=== PATIENT | male | born 1970 | race Caucasian/White ===

== ENCOUNTER 2016-12-22 12:41 | Emergency (ER) | payer OTHER ==
[2016-12-22 12:53] VITALS: BMI 36.1
[2016-12-22] MEDS ORDERED: morphine CARPU-JECT 2 MG/1 ML DISP.SYRIN ONE (13:58)
--- NOTE | 2016-12-22 13:58 | PDOC ---
History of Present Illness - General Chief Complaint: Pain Stated Complaint: PAIN Time Seen by Provider: 12/22/16 13:02 History Source: Patient - History of Present Illness Occurred: reports: yesterday Severity: Yes: severe Lower Extremity Pain Location: left: leg Past History - Past Medical History Allergies/Adverse Reactions: Allergies Allergy/AdvReac Type Severity Reaction Status Date / Time No Known Allergies Allergy Verified 12/22/16 12:42 Home Medications: Ambulatory Orders Acetaminophen [Tylenol] 650 mg PO QID PRN 12/22/16 Aspirin [ASA -] 81 mg PO DAILY 12/22/16 Atenolol [Tenormin -] 50 mg PO DAILY 12/22/16 Cefdinir [Omnicef -] 300 mg PO BID 12/22/16 Cetirizine HCl [Wal-Zyr] 10 mg PO DAILY 12/22/16 Clopidogrel Bisulfate [Plavix -] 75 mg PO DAILY 12/22/16 Finasteride [Proscar] 5 mg PO DAILY 12/22/16 Fluticasone Propionate [Flovent Diskus] 50 mcg IH DAILY 12/22/16 Gabapentin [Neurontin] 600 mg PO TID 12/22/16 Gluc HCl/Csa/Collagen/Hyalur A [Glucosamine Chondroitin Cap] 1 cap PO DAILY Sertraline HCl [Zoloft] 100 mg PO DAILY 12/22/16 Tamsulosin HCl 0.4 mg PO DAILY 12/22/16 Tramadol HCl 50 mg PO Q6H #20 tablet MDD 200 mg 12/22/16 Trazodone HCl 50 mg PO DAILY 12/22/16 Vitamin B Complex [B Complete] 1 tab PO DAILY 12/22/16 Zolpidem Tartrate 10 mg PO PRN 12/22/16 HTN: Yes Other medical history: BPH, DVT - Psycho/Social/Smoking Cessation Hx Anxiety: No Suicidal Ideation: No Smoking History: Never smoked Have you smoked in the past 12 months: No Number of Cigarettes Smoked Daily: 3 Information on smoking cessation initiated: No 'Breaking Loose' booklet given: 07/30/14 Hx Alcohol Use: No Drug/Substance Use Hx: No Substance Use Type: None Hx Substance Use Treatment: No Review of Systems - Review of Systems Constitutional: No: Chills, Fever Respiratory: No: Shortness of Breath Cardiac (ROS): No: Chest Pain, Palpitations Neurological: Yes: Numbness. No: Tingling, Weakness *Physical Exam - Vital Signs Last Vital Signs Temp Pulse Resp BP Pulse Ox 98.0 F 72 18 139/80 100 12/22/16 12:43 12/22/16 12:43 12/22/16 12:43 12/22/16 12:43 12/22/16 12:43 - Physical Exam General Appearance: Yes: Appropriately Dressed, Mild Distress HEENT: positive: Normal Voice Neck: positive: Supple Respiratory/Chest: positive: Lungs Clear, Normal Breath Sounds. negative: Respiratory Distress Cardiovascular: positive: Regular Rate, S1, S2 Extremity: positive: Other (well healing sx scars, b/l, severe pain w/ palpation to L calf, no swelling, pedal pulses intact b/l) Integumentary: positive: Dry, Warm Neurologic: positive: Fully Oriented, Alert, Normal Mood/Affect ED Treatment Course - LABORATORY CBC & Chemistry Diagram: 12/22/16 13:17 12/22/16 13:17 - RADIOLOGY Radiology Studies Ordered: Category Date Time Status DUPLEX VASCUL US-1 LEG [US] Stat Ultrasound 12/22/16 13:24 Ordered Medical Decision Making - Medical Decision Making 12/22/16 13:53 46-year-old male history of hypertension, chronic sinusitis, status post fem- popliteal bypass on plavix, status post thrombectomy with stent placement to left lower leg 10/[address] Barrera, here with severe L calf pain that started yesterday, worse with walking, better with rest and also report numbness to leg. Denies any fever or chills. No trauma. See exam L calf pain Vasculopath w/ fem-pop bypass to RLE and s/p thrombectomy w/ stent placement to LLE 10/15 +calf ttp and well healing surgical scars to b/l LE, PT/DP pulses intact b/l, no cold extremity -pain control -labs -dopplers r/o clot or occlusion -vasc c/s for possible CTA w/ runoffs -dispo pending 12/22/16 13:58 12/22/16 16:05 Vasc and arterial doppler ordered as per d/w Dr Barrera and shows no DVT and patent bypass site w/ no e/o infection. Pain presently controlled w/ meds. Will discuss dipo w/ vascular 12/22/16 17:23 Dr. Barrera aware of ultrasound results and agrees that patient can be discharged with pain control and to follow up with MJudah in office *DC/Admit/Observation/Transfer Diagnosis at time of Disposition: Pain of left calf - Discharge Dispostion Disposition: HOME Condition at time of disposition: Improved - Prescriptions Prescriptions: Tramadol HCl 50 mg PO Q6H #20 tablet MDD 200 mg - Patient Instructions Additional Instructions: Your US shows that you bypass is clear with no blockage, infection or blood clot Take pain meds as directed and call Dr Barrera to make an appointment
[2016-12-22 14:00] LABS: BASOPHIL 0.9 % (0-2.0); EOSINOPHIL 5.4 % (0-4.5); MCH 31.2 pg (25.7-33.7); MCHC 33.3 g/dl (32.0-35.9); MEAN CELL VOLUME 93.6 fl (80-96); NEUTROPHILS 59.7 % (42.8-82.8); PLATELET COUNT 312 K/MM3 (134-434); RDW 13.7 % (11.9-15.9)
[2016-12-22] MEDS ORDERED: morphine CARPU-JECT 4 MG/1 ML DISP.SYRIN IVPUSH ONE (14:14)
[2016-12-22 14:22] LABS: ALK PHOS 50 U/L (45-117); ANION GAP 7 (8-16); BILIRUBIN,TOTAL 0.3 mg/dL (0.2-1.0); CALCIUM 9.6 mg/dL (8.5-10.1); CO2 32 mmol/L (21-32); CREATININE 0.9 mg/dL (0.7-1.3); GLUCOSE,RANDOM 95 mg/dL (74-106); SGOT/AST 19 U/L (15-37); SGPT/ALT 38 U/L (12-78); TOT PROT 7.3 g/dl (6.4-8.2)
[2016-12-22 14:57] LABS: INR 0.97 (0.82-1.09); PROTHROMBIN TIME (PATIENT) 10.7 SEC (9.98-11.88)
[2016-12-22 14:58] LABS: URINE APPEARANCE CLEAR; URINE BILIRUBIN NEGATIVE (NEGATIVE); URINE BLOOD NEGATIVE (NEGATIVE); URINE COLOR LTYELLOW; URINE GLUCOSE (UA) NEGATIVE (NEGATIVE); URINE KETONE NEGATIVE (NEGATIVE); URINE LEUK ESTERASE NEGATIVE (NEGATIVE); URINE NITRITE NEGATIVE (NEGATIVE); URINE PROTEIN NEGATIVE (NEGATIVE); URINE UROBILINOGEN NEGATIVE E.U./dl (0.2-1.0)
[2016-12-22 16:10] VITALS: PULSE 100
[2016-12-22 17:41] VITALS: BP 134/87; TEMP 98.3
== END 2016-12-22 17:38 | disposition home or self-care (01) ==
LOC: JER 12:41
PROC: 3E033NZ Introduction of Analgesics, Hypnotics, Sedatives into Peripheral Vein, Percutaneous Approach (ICD-10-PCS; principal; 2016-12-22)
DX: M79.662 Pain in left lower leg (principal); Z86.718 Personal history of other venous thrombosis and embolism; Z79.01 Long term (current) use of anticoagulants; N40.0 Benign prostatic hyperplasia without lower urinary tract symptoms; Z86.79 Personal history of other diseases of the circulatory system; Z95.820 Peripheral vascular angioplasty status with implants and grafts
CPT/HCPCS: 36415; 80053; 81003; 85025; 85610; 86850; 86900; 86901; 93926-TC; 93971-TC; 96374; 99283-25

== ENCOUNTER 2017-05-26 23:51 | Emergency (ER) | payer OTHER ==
[2017-05-26 23:56] VITALS: BP 121/68; PULSE 116; TEMP 98.1; BMI 44.4
--- NOTE | 2017-05-27 01:18 | PDOC ---
History of Present Illness - General History Source: Patient Exam Limitations: No Limitations - History of Present Illness Initial Comments: 05/27/17 01:24 The patient is a 47 year old male with past medical history of hypertension, BPH , and DVT s/p bilateral femoral popliteal bypass 3 years ago who presents to the ED with complaints of bilateral lower extremity pain for the past few days. The patient locates the pain to his surgical scar sites. He describes it as a burning, stabbing pain with associated tingling that has since gotten worse over the past few days. His symptoms are present even at rest and are unaffected by taking tramadol. The patient denies any fevers, chills, nausea, vomiting, diarrhea, cough, SOB, or urinary symptoms. Vascular Surgeon: Jamie Barrera <Leanna Farley - Last Filed: 05/27/17 01:24> - General History Source: Patient Exam Limitations: No Limitations <Norman Fontenot - Last Filed: 05/27/17 02:16> - General Chief Complaint: Pain, Acute Stated Complaint: LEG PAIN Time Seen by Provider: 05/27/17 00:13 Past History <Leanna Farley - Last Filed: 05/27/17 01:24> - Past Medical History HTN: Yes - Suicide/Smoking/Psychosocial Hx Smoking History: Unknown if ever smoked Have you smoked in the past 12 months: No Number of Cigarettes Smoked Daily: 3 Information on smoking cessation initiated: No 'Breaking Loose' booklet given: 07/30/14 Hx Alcohol Use: No Drug/Substance Use Hx: No Substance Use Type: None Hx Substance Use Treatment: No <Norman Fontenot - Last Filed: 05/27/17 02:16> - Past Medical History Allergies/Adverse Reactions: Allergies Allergy/AdvReac Type Severity Reaction Status Date / Time No Known Allergies Allergy Verified 05/26/17 23:56 Home Medications: Ambulatory Orders Acetaminophen [Tylenol] 650 mg PO QID PRN 12/22/16 Aspirin [ASA -] 81 mg PO DAILY 12/22/16 Atenolol [Tenormin -] 50 mg PO DAILY 12/22/16 Cefdinir [Omnicef -] 300 mg PO BID 12/22/16 Cetirizine HCl [Wal-Zyr] 10 mg PO DAILY 12/22/16 Clopidogrel Bisulfate [Plavix -] 75 mg PO DAILY 12/22/16 Finasteride [Proscar] 5 mg PO DAILY 12/22/16 Fluticasone Propionate [Flovent Diskus] 50 mcg IH DAILY 12/22/16 Gabapentin [Neurontin] 600 mg PO TID 12/22/16 Gluc HCl/Csa/Collagen/Hyalur A [Glucosamine Chondroitin Cap] 1 cap PO DAILY Sertraline HCl [Zoloft] 100 mg PO DAILY 12/22/16 Tamsulosin HCl 0.4 mg PO DAILY 12/22/16 Tramadol HCl 50 mg PO Q6H #20 tablet MDD 200 mg 12/22/16 Trazodone HCl 50 mg PO DAILY 12/22/16 Vitamin B Complex [B Complete] 1 tab PO DAILY 12/22/16 Zolpidem Tartrate 10 mg PO PRN 12/22/16 Review of Systems - Review of Systems Able to Perform ROS?: Yes Comments:: 05/27/17 01:25 GENERAL/CONSTITUTIONAL: No fever or chills. No weakness. HEAD, EYES, EARS, NOSE AND THROAT: No change in vision. No ear pain or discharge. No sore throat. CARDIOVASCULAR: No chest pain or shortness of breath. RESPIRATORY: No cough, wheezing, or hemoptysis. GASTROINTESTINAL: No nausea, vomiting, diarrhea or constipation. GENITOURINARY: No dysuria, frequency, or change in urination. MUSCULOSKELETAL: Present: bilateral lower extremity pain No joint or muscle swelling or pain. No neck or back pain. SKIN: No rash NEUROLOGIC: No headache, vertigo, loss of consciousness, or change in strength/ sensation. ENDOCRINE: No increased thirst. No abnormal weight change. HEMATOLOGIC/LYMPHATIC: No anemia, easy bleeding, or history of blood clots. ALLERGIC/IMMUNOLOGIC: No hives or skin allergy. All Other Systems: Reviewed and Negative <Leanna Farley - Last Filed: 05/27/17 01:24> *Physical Exam - Vital Signs Last Vital Signs Temp Pulse Resp BP Pulse Ox 98.1 F 116 H 20 121/68 95 05/26/17 23:54 05/26/17 23:54 05/26/17 23:54 05/26/17 23:54 05/26/17 23:54 - Physical Exam Comments: 05/27/17 01:25 GENERAL: Awake, alert, and fully oriented, in no acute distress HEAD: No signs of trauma EYES: PERRLA, EOMI, sclera anicteric, conjunctiva clear ENT: Auricles normal inspection, hearing grossly normal, nares patent, oropharynx clear without exudates. Moist mucosa NECK: Normal ROM, supple, no lymphadenopathy, JVD, or masses LUNGS: Breath sounds equal, clear to auscultation bilaterally. No wheezes, and no crackles HEART: Regular rate and rhythm, normal S1 and S2, no murmurs, rubs or gallops ABDOMEN: Soft, nontender, normoactive bowel sounds. No guarding, no rebound. No masses EXTREMITIES: Large surgical scars extending from left medial thigh to left medial calf, tender to palpation, negative isaura sign, 2+ DP pulse bilaterally. Normal range of motion, no edema. No clubbing or cyanosis. No cords, erythema. NEUROLOGICAL: Cranial nerves II through XII grossly intact. Normal speech, normal gait SKIN: Warm, Dry, normal turgor, no rashes or lesions noted. <Leanna Farley - Last Filed: 05/27/17 01:24> - Vital Signs Last Vital Signs Temp Pulse Resp BP Pulse Ox 98.1 F 116 H 20 121/68 95 05/26/17 23:54 05/26/17 23:54 05/26/17 23:54 05/26/17 23:54 05/26/17 23:54 <Norman Fontenot - Last Filed: 05/27/17 02:16> ED Treatment Course - RADIOLOGY Radiology Studies Ordered: Category Date Time Status DUPLEX ART. LOWER COMPL US [US] Stat Ultrasound 05/27/17 00:36 Ordered DUPLEX VASCUL US-2LEGS [US] Stat Ultrasound 05/27/17 00:36 Ordered <Norman Fontenot - Last Filed: 05/27/17 02:16> Medical Decision Making - Medical Decision Making 05/27/17 01:17 A portion of this note was documented by scribe services under my direction. I have reviewed the details of the note, within reason, and agree with the documentation with the following case summary and management plan written by me. Patient treated in the ED. Nursing notes are reviewed and incorporated into the medical decision-making. Vital signs reviewed. Peripheral IV access obtained by the nurse, laboratory studies are drawn and sent, reviewed and interpreted by myself. Vital Signs Temp Pulse Resp BP Pulse Ox 98.1 F 116 H 20 121/68 95 05/26/17 23:54 05/26/17 23:54 05/26/17 23:54 05/26/17 23:54 05/26/17 23:54 47 year old male with past medical history of hypertension, peripheral arterial disease status post femoral-popliteal bypass bilaterally on Plavix, status post lumpectomy was stent placement in the left lower leg presents to the emergency department for bilateral leg pains. The patient has pain along the scars. States that this has been a chronic pain that has worsened over the last 2 weeks. Denies any new numbness or weakness. Has intermittently taken his tramadol and Tylenol with little effect. Denies any trauma or injuries. The patient has strong palpable DP pulses bilaterally. The pain appears to be mostly at the scar sites. I suspect that the pain is mostly scar related. We'll however, obtain duplexes of the veins and arteries of the lower extremities and trial Percocet. If feel traumas negative the patient reports feeling better, I feel the patient may be discharged home with vascular follow-up as an outpatient. 05/27/17 02:15 Pt signed out to Dr. Galeano. <Norman Fontenot - Last Filed: 05/27/17 02:16> *DC/Admit/Observation/Transfer - Attestations Scribe Attestion: 05/27/17 01:29 Documentation prepared by Leanna Farley, acting as medical coding manager for Norman Fontenot MD. <Leanna Farley - Last Filed: 05/27/17 01:24>
--- NOTE | 2017-05-27 04:03 | PDOC ---
*Physical Exam - Vital Signs Last Vital Signs Temp Pulse Resp BP Pulse Ox 98.1 F 116 H 20 121/68 95 05/26/17 23:54 05/26/17 23:54 05/26/17 23:54 05/26/17 23:54 05/26/17 23:54 ED Treatment Course - Medications Given in the ED: ED Medications Discontinued Medications Generic Name Dose Route Start Last Admin Trade Name Freq PRN Reason Stop Dose Admin Oxycodone/Acetaminophen 1 combo 05/27/17 00:36 05/27/17 02:34 Percocet 5/325 - PO 05/27/17 00:37 1 combo ONCE ONE Administration Medical Decision Making - Medical Decision Making 05/27/17 04:02 Sign out taken from Dr. Fontenot at 2AM. 47 M with PAD s/p b/l fem-pop bypasses, presenting with BLE pain. - Arterial duplex with patent vessels. Pt reassessed - now reports that the pain is significantly better. Pt ambulatory in ER with stable gait. Pt well appearing with normal vitals. Clinically stable for DC. *DC/Admit/Observation/Transfer Diagnosis at time of Disposition: Leg pain, bilateral - Discharge Dispostion Disposition: HOME - Referrals - Patient Instructions Printed Discharge Instructions: DI for Leg Pain Additional Instructions: Follow up with your vascular surgeon within 1 week for a re-evaluation. If you experience worsening pain, swelling, numbness, or any other concerning symptoms, return to the ER immediately. - Post Discharge Activity - Attestations Physician Attestion: 05/27/17 04:05 I, Dr. Sky Galeano MD, attest that this document has been prepared under my direction and personally reviewed by me in its entirety. I further attest, that it accurately reflects all work, treatment, procedures and medical decision -making performed by me.
== END 2017-05-27 04:17 | disposition home or self-care (01) ==
LOC: JER 23:51
DX: I73.89 Other specified peripheral vascular diseases (principal); Z79.01 Long term (current) use of anticoagulants; Z79.82 Long term (current) use of aspirin; I10 Essential (primary) hypertension; N40.0 Benign prostatic hyperplasia without lower urinary tract symptoms; Z86.718 Personal history of other venous thrombosis and embolism
CPT/HCPCS: 93925-TC; 99281-25

== ENCOUNTER 2020-08-12 16:51 | Emergency (ER) | payer OTHER ==
[2020-08-12 17:32] VITALS: BMI 28.7
[2020-08-12] MEDS ORDERED: ACETAMINOPHEN 500 MG TABLET (FP) PO ONE (18:00)
[2020-08-12] MEDS ORDERED: ACETAMINOPHEN 325 MG TABLET (FP) ONE (18:46)
[2020-08-12 20:13] VITALS: BP 122/68; PULSE 88; TEMP 100.5
== END 2020-08-12 20:54 | disposition home or self-care (01) ==
LOC: JER 16:51
DX: U07.1 COVID-19 (principal)
CPT/HCPCS: 71046-TC-FY; 93005; 93010; 99284-25

== ENCOUNTER 2021-05-31 13:21 | Emergency (ER) | payer OTHER ==
[2021-05-31 13:50] VITALS: BP 118/68; PULSE 75; TEMP 97.8; BMI 36.6
[2021-05-31] MEDS ORDERED: KETOROLAC TROMETHAMINE 30 MG/1 ML VIAL IM ONE (14:27)
[2021-05-31] MEDS ORDERED: KETOROLAC TROMETHAMINE 30 MG/1 ML VIAL ONE (14:28)
== END 2021-05-31 14:51 | disposition home or self-care (01) ==
LOC: JERFT 13:21
PROC: 3E0233Z Introduction of Anti-inflammatory into Muscle, Percutaneous Approach (ICD-10-PCS; principal; 2021-05-31)
DX: M54.31 Sciatica, right side (principal); X50.0XXA Overexertion from strenuous movement or load, initial encounter
CPT/HCPCS: 72100-TC-FY; 99284-25